=== PATIENT | female | born 1995 | race Caucasian/White ===

== ENCOUNTER → 2016-05-23 | Outpatient (CLI) | payer OTHER | LOC: MC.RAD 08:59 | DX: N63 Unspecified lump in breast (principal) ==

== ENCOUNTER → 2019-08-23 | Outpatient (CLI) | payer OTHER | LOC: MC.RAD 12:50 | DX: D24.1 Benign neoplasm of right breast (principal) ==

== ENCOUNTER → 2020-07-29 | Outpatient (CLI) | payer OTHER ==
[~2020-07-29] MED LIST: IBU800 M1 PO; PERCOCET 325 MG1 TA2 PO; PRENATAL TABLET PO; PROTONIX20 MG PO; TRANDATE 100MG100 MG PO; WELLBUTRIN XL150 MG PO; ZYRTEC 10MG10 MG PO
== END ==
LOC: ZCOL.LAB 11:41
DX: Z20.822 Contact with and (suspected) exposure to COVID-19 (principal)

== ENCOUNTER 2020-08-03 11:46 | Inpatient (IN) | payer OTHER ==
[~2020-08-03] VITALS: Ht 175.3 cm; Wt 85.9 kg
[2020-08-04] MEDS ORDERED: WELLBUTRIN XL150 MG PO (22:48)
[2020-08-04] MEDS ORDERED: TRANDATE 100MG100 MG PO (22:49)
[2020-08-04] MEDS ORDERED: PROTONIX20 MG PO (22:49)
[2020-08-04] MEDS ORDERED: PRENATAL TABLET PO (22:50)
[2020-08-04] MEDS ORDERED: ZYRTEC 10MG10 MG PO (22:50)
[2020-08-05] VITALS (74 sets, daily range): BP systolic 108–164; BP diastolic 55–95; PULSE 78–120; TEMP 98–98.6
[2020-08-05 01:46] LABS: HEMOGLOBIN 11.1 g/dl (12.5-16.0); MEAN CELL VOLUME 82 fl (80.0-100.0); MEAN CORPUSCULAR HEMOGLOBIN 26 pg (27.0-31.0); MEAN CORPUSCULAR HGB CONC 32 g/dl (33.0-37.0); PLATELET COUNT 308 K/mm3 (130-400); RED BLOOD COUNT 4.28 M/mm3 (4.10-5.30); REDCELL DISTRIBUTION WIDTH-CV 14.3 % (11.5-14.5)
[2020-08-05 01:52] LABS: HEMATOCRIT 34.9 % (37.0-47.0)
[2020-08-05 02:09] LABS: BAND 4 % (0-10); EOSINOPHIL 1 % (0-4); LYMPHOCYTE 25 % (20.0-51.0); METAMYELOCYTE 1 % (0-0); NEUTROPHILS 61 % (42.0-75.2); NUCLEATED RED BLOOD CELL 1 (0-6)
[2020-08-05 02:10] LABS: HYPOCHROMIA 2+; PLATELET ESTIMATE NORMAL (NORMAL)
[2020-08-06 02:00] VITALS: BP 101/62; PULSE 85; TEMP 97.9
[2020-08-06 05:30] VITALS: BP 120/67; PULSE 77; TEMP 98.2
[2020-08-06 08:30] VITALS: BP 105/60; PULSE 90; TEMP 97.7
[2020-08-06 12:48] VITALS: BP 111/65; PULSE 83; TEMP 97.8
[2020-08-06 16:29] VITALS: BP 101/55; PULSE 83; TEMP 98.6
[2020-08-06 20:35] VITALS: BP 106/64; PULSE 92; TEMP 97.7
[2020-08-07 03:00] VITALS: BP 118/62; PULSE 82; TEMP 98.1
[2020-08-07 07:30] VITALS: BP 114/66; PULSE 85; TEMP 98.3
[2020-08-07] MEDS ORDERED: PERCOCET 325 MG1 TA2 PO (11:22)
[2020-08-07] MEDS ORDERED: IBU800 M1 PO (11:22)
== END 2020-08-07 11:50 | disposition home or self-care (01) | DRG 807 ==
LOC: OB 11:46 → LDR 08-05 00:07 → OB 08-05 00:07
PROVIDERS: ADMIT Student in an Organized Health Care Education/Training Program
PROC: 10E0XZZ Delivery of Products of Conception, External Approach (ICD-10-PCS; principal; 2020-08-05)
PROC: 0KQM0ZZ Repair Perineum Muscle, Open Approach (ICD-10-PCS; 2020-08-05)
PROC: 10907ZC Drainage of Amniotic Fluid, Therapeutic from Products of Conception, Via Natural or Artificial Opening (ICD-10-PCS; 2020-08-05)
PROC: 3E0P7VZ Introduction of Hormone into Female Reproductive, Via Natural or Artificial Opening (ICD-10-PCS; 2020-08-05)
PROC: 3E033VJ Introduction of Other Hormone into Peripheral Vein, Percutaneous Approach (ICD-10-PCS; 2020-08-05)
DX: O13.4 Gestational [pregnancy-induced] hypertension without significant proteinuria, complicating childbirth (principal); Z37.0 Single live birth; O99.344 Other mental disorders complicating childbirth; F41.9 Anxiety disorder, unspecified; F32.9 Major depressive disorder, single episode, unspecified; O99.62 Diseases of the digestive system complicating childbirth; K21.9 Gastro-esophageal reflux disease without esophagitis; O70.1 Second degree perineal laceration during delivery; O77.0 Labor and delivery complicated by meconium in amniotic fluid; Z3A.37 37 weeks gestation of pregnancy
CPT/HCPCS: J2405; J2590; J7120